=== PATIENT | female | born 1975 | race Caucasian/White ===

== ENCOUNTER 2021-05-09 23:31 | Emergency (ER) | payer SELFPAY ==
[~2021-05-09] VITALS: Ht 157.5 cm; Wt 96.8 kg
[2021-05-10] MEDS ORDERED: ALBUTEROL (0.083%) 2.5MG/3ML NEB HHN ONE (01:45)
[2021-05-10 01:47] LABS: BASOPHILS % 0.4 % (0.0-2.0); EOSINOPHILS % 2.3 % (0.0-5.0); HEMATOCRIT. 39.5 % (36.0-48.0); HEMOGLOBIN. 13.3 g/dL (12.0-16.0); LYMPHOCYTES % 29.8 % (20.0-50.0); MEAN CORPUSCULAR HEMOGLOBIN 31.2 pg (28.0-32.0); MEAN CORPUSCULAR VOLUME 92.5 fL (81.0-99.0); MEAN PLATELET VOLUME 8.9 fl (7.4-10.4); MONOCYTES % 7.6 % (2.0-8.0); NEUTROPHILS % 59.9 % (40.0-76.0); PLATELET 267 x1000/uL (130-400); RED BLOOD CELL COUNT 4.27 mill/uL (4.2-5.4); RED CELL DISTRIBUTION WIDTH 13.9 % (11.6-14.6)
[2021-05-10 01:53] LABS: CHLORIDE 108 mEq/L (98-107)
[2021-05-10 01:57] LABS: CLARITY URINE CLOUDY (CLEAR); COLOR URINE YELLOW (YELLOW); KETONES URINE NEGATIVE (NEGATIVE); LEUKOCYTE ESTERASE URINE NEGATIVE (NEGATIVE); NITRITE URINE NEGATIVE (NEGATIVE); OCCULT BLOOD URINE NEGATIVE (NEGATIVE); PROTEIN URINE NEGATIVE (NEGATIVE); SPECIFIC GRAVITY URINE 1.019 (1.005-1.030)
[2021-05-10] MEDS ORDERED: GUAIFENESIN 600MG ER TABLET PO ONE (02:00)
[2021-05-10] MEDS ORDERED: ALBU6.7H9 INH (03:26)
[2021-05-10] MEDS ORDERED: GUAI600T26 MT (03:26)
[2021-05-10 03:47] VITALS: BP 102/63
== END 2021-05-10 03:54 | disposition home or self-care (01) ==
LOC: ER 23:31
DX: J40 Bronchitis, not specified as acute or chronic (principal); Z20.822 Contact with and (suspected) exposure to COVID-19; Z72.0 Tobacco use
CPT/HCPCS: 36415; 71045; 80053; 81003; 83880; 84484; 85025; 87426; 93005; 99285

== ENCOUNTER 2021-11-08 14:45 | Emergency (ER) | payer MEDICAID, OTHER ==
[~2021-11-08] VITALS: Ht 162.6 cm; Wt 91.0 kg
[~2021-11-08 14:45] MED LIST: ALBU6.7H9 INH; GUAI600T26 MT
[2021-11-08 15:24] VITALS: BP 121/81
[2021-11-08 17:38] LABS: BASOPHILS % 0.5 % (0.0-2.0); EOSINOPHILS % 1.5 % (0.0-5.0); HEMATOCRIT. 40.6 % (36.0-48.0); HEMOGLOBIN. 13.7 g/dL (12.0-16.0); LYMPHOCYTES % 24.6 % (20.0-50.0); MEAN CORPUSCULAR HEMOGLOBIN 30.9 pg (28.0-32.0); MEAN CORPUSCULAR VOLUME 91.5 fL (81.0-99.0); MEAN PLATELET VOLUME 9.4 fl (7.4-10.4); MONOCYTES % 8.7 % (2.0-8.0); NEUTROPHILS % 64.7 % (40.0-76.0); PLATELET 268 x1000/uL (130-400); RED BLOOD CELL COUNT 4.44 mill/uL (4.2-5.4); RED CELL DISTRIBUTION WIDTH 13.8 % (11.6-14.6)
[2021-11-08 17:46] LABS: CHLORIDE 109 mEq/L (98-107)
[2021-11-08 17:55] LABS: HCG SCREEN NEGATIVE
== END 2021-11-08 21:00 | disposition left against medical advice (07) ==
LOC: ER 14:45
DX: R10.13 Epigastric pain (principal)
CPT/HCPCS: 36415; 76705; 80053; 84703; 85025; 99284

== ENCOUNTER 2023-01-27 14:31 | Emergency (ER) | payer MEDICAID ==
[~2023-01-27] VITALS: Ht 152.4 cm; Wt 81.0 kg
[~2023-01-27 14:31] MED LIST changes: +ALBU6.7H3 INH; -ALBU6.7H9 INH
[2023-01-27 14:47] VITALS: TEMP 98.5; O2SAT 98
[2023-01-27] MEDS ORDERED: KETOROLAC 30MG/ML VIAL IM ONE (15:30)
[2023-01-27] MEDS ORDERED: AMOXICILLIN/POTASSIUM CLAVULANATE 875/125MG TAB PO ONE (15:30)
[2023-01-27 15:38] VITALS: BP 113/61; PULSE 81; RESP 20
[2023-01-27] MEDS ORDERED: AMOX1TAB16 MT (15:48)
[2023-01-27] MEDS ORDERED: NAPR-681 MT (15:50)
[2023-01-27] MEDS ORDERED: TETANUS, DIPHTHERIA, PERTUSSIS VAC/PF 0.5ML (>10YR OLD) IM ONE (16:15)
== END 2023-01-27 16:42 | disposition home or self-care (01) ==
LOC: ER 14:31
DX: L03.113 Cellulitis of right upper limb (principal)
CPT/HCPCS: 99284; 73140; 90715; 90471; 96372; J1885